=== PATIENT | male | born 1945 | race Caucasian/White ===

== ENCOUNTER 2018-11-02 17:04 | Observation (INO) ==
[2018-11-02] MEDS ORDERED: NITROGLYCERIN 2% OINT 1 INCH/GM PACK TOP STA (17:23)
[2018-11-02] MEDS ORDERED: SODIUM CHLORIDE 0.9% 1,000 ML IV STA ×2 (17:23→18:04)
[2018-11-02] MEDS ORDERED: ASPIRIN 325 MG TABLET PO STA (17:23)
[2018-11-02 17:31] LABS: Basophils % 0.1 % (0.0-0.8); Hemoglobin 15.7 GM/DL (14.0-18.0); Immature Granulocytes % 0.4 %; Immature Granulocytes Absolute 0.04 #; Lymphocytes # 0.7 10*3/uL (1.4-4.0); Lymphocytes % 7.6 % (21.2-54.2); Mean Corpuscular HGB Conc 32.7 GM/DL (32-36); Mean Corpuscular Volume 96.2 FL (87-102); Mean Platelet Volume 9.3 FL (9.6-12.0); Monocytes % 4.4 % (1.7-12.7); Neutrophils % 87.5 % (38.7-73.9); Platelet Count 260 T/CUMM (130-400); Red Blood Count 4.99 MC/CUMM (3.8-5.5); Red Cell Distribution Width 13.7 % (9.3-17.3); White Blood Count 9.3 T/CUMM (4-12)
[2018-11-02 17:37] LABS: INR 1.2; PT Patient Result 12.6 SECS; Partial Thromboplastin Time 36.1 SECS (0-40)
[2018-11-02 17:56] LABS: Alanine Aminotransferase 50 U/L (16-61); Albumin 4.2 G/DL (3.4-5.0); Alkaline Phosphatase 58 U/L (45-117); Aspartate Amino Transferase 24 U/L (0-37); Blood Urea Nitrogen 27 MG/DL (7-18); Glucose 134 MG/DL (74-106); Osmolality,Calculated 289.1 MOS/KG (273-304); Total Protein 7.3 G/DL (6.4-8.3); Troponin I < 0.015 NG/ML (0.00-0.045)
[2018-11-02] MEDS ORDERED: ONDANSETRON 4 MG/2 ML VIAL IV ONE (18:08)
[2018-11-02] MEDS ORDERED: MORPHINE 4 MG/1 ML VIAL IV ONE (18:08)
[2018-11-02] MEDS ORDERED: ONDANSETRON 4 MG/2 ML VIAL IV PRN (18:09)
[2018-11-02] MEDS ORDERED: ACETAMINOPHEN 325 MG TABLET PO PRN (18:09)
[2018-11-02] MEDS ORDERED: ENOXAPARIN 40 MG/0.4 ML SYRINGE SUBCUT SCH (18:30)
[2018-11-02] MEDS: SODIUM CHLORIDE 0.9% 1,000 ML IV SCH (20:42)
[2018-11-02] MEDS: DOCUSATE SODIUM 100 MG CAPSULE PO SCH (20:42)
[2018-11-02 21:43] LABS: Troponin I < 0.015 NG/ML (0.00-0.045)
[2018-11-02] MEDS: DABIGATRAN 150 MG CAPSULE PO SCH (22:44)
[2018-11-03] MEDS: SODIUM CHLORIDE 0.9% 1,000 ML IV SCH ×2 (02:52→11:43)
[2018-11-03 04:40] LABS: Basophils % 0.1 % (0.0-0.8); Eosinophils # 0.1 10*3/uL (0.0-0.87); Eosinophils % 0.9 % (0.00-10.9); Hematocrit 40.6 VOL% (42.0-52.0); Immature Granulocytes % 0.1 %; Immature Granulocytes Absolute 0.01 #; Lymphocytes # 1.3 10*3/uL (1.4-4.0); Lymphocytes % 19.4 % (21.2-54.2); Mean Corpuscular Volume 97.8 FL (87-102); Mean Platelet Volume 10.2 FL (9.6-12.0); Monocytes % 5.8 % (1.7-12.7); Neutrophils % 73.7 % (38.7-73.9); Platelet Count 197 T/CUMM (130-400); Red Blood Count 4.15 MC/CUMM (3.8-5.5); Red Cell Distribution Width 13.8 % (9.3-17.3); White Blood Count 6.9 T/CUMM (4-12)
[2018-11-03 05:35] LABS: Blood Urea Nitrogen 27 MG/DL (7-18); Calcium 7.8 MG/DL (8.5-10.1); Glucose 85 MG/DL (74-106); Osmolality,Calculated 282.4 MOS/KG (273-304); Troponin I < 0.015 NG/ML (0.00-0.045)
[2018-11-03] MEDS ORDERED: PANTOPRAZOLE 40 MG TABLET PO SCH (09:00)
[2018-11-03] MEDS ORDERED: predniSONE 10 MG TABLET PO SCH (09:00)
[2018-11-03] MEDS ORDERED: ASPIRIN EC 81 MG TABLET PO SCH (09:00)
[2018-11-03] MEDS ORDERED: LORATADINE 10 MG TABLET PO SCH (09:00)
[2018-11-03] MEDS ORDERED: METOPROLOL SUCCINATE XL 50 MG TABLET PO SCH ×2 (09:00)
[2018-11-03] MEDS: DABIGATRAN 150 MG CAPSULE PO SCH (09:48)
[2018-11-03] MEDS: DOCUSATE SODIUM 100 MG CAPSULE PO SCH (09:49)
[2018-11-03 11:48] VITALS: BP 105/58
[2018-11-03 11:53] LABS: Troponin I < 0.015 NG/ML (0.00-0.045)
== END 2018-11-03 14:27 | disposition home or self-care (01) ==
LOC: N.EDINP 17:04 → N.ED 17:04 → N.TELEN 18:40
PROVIDERS: ADMIT Family Medicine; ATTEND Family Medicine